=== PATIENT | male | born 1985 | race African-American/Black ===

== ENCOUNTER 2016-09-29 08:26 | Emergency (ER) | payer SELFPAY ==
[~2016-09-29] VITALS: Ht 170.2 cm; Wt 73.0 kg
[2016-09-29 08:40] VITALS: BP 128/94
== END 2016-09-29 12:09 | disposition home or self-care (01) ==
LOC: ER 11:38
DX: S61.031A Puncture wound without foreign body of right thumb without damage to nail, initial encounter (principal); W22.8XXA Striking against or struck by other objects, initial encounter; Y93.89 Activity, other specified; Y92.69 Other specified industrial and construction area as the place of occurrence of the external cause; Y99.0 Civilian activity done for income or pay
CPT/HCPCS: 99281